=== PATIENT | female | born 1955 | race Caucasian/White ===

== ENCOUNTER 2024-02-24 10:24 | Emergency (ER) | payer OTHER ==
[~2024-02-24] VITALS: Ht 170.2 cm; Wt 88.0 kg
[2024-02-24 10:59] VITALS: BP 129/89; PULSE 73; TEMP 97.8; O2SAT 97
[2024-02-24 14:57] VITALS: RESP 16
[2024-02-24] MEDS: ketorolac trometh 15mg/ml vial 15 MG/ML ML IM ONE (14:57)
[2024-02-25] MEDS ORDERED: NAPR-996 PO (16:40)
[2024-02-25] MEDS ORDERED: METH-798 PO (16:40)
== END 2024-02-24 15:04 | disposition home or self-care (01) ==
LOC: ER 10:26
DX: S16.1XXA Strain of muscle, fascia and tendon at neck level, initial encounter (principal); Z88.8 Allergy status to other drugs, medicaments and biological substances; V89.2XXA Person injured in unspecified motor-vehicle accident, traffic, initial encounter; Y93.89 Activity, other specified; Y92.89 Other specified places as the place of occurrence of the external cause; Y99.8 Other external cause status
CPT/HCPCS: 96372; 99283; J1885